=== PATIENT | female | born 1945 | race Caucasian/White ===

== ENCOUNTER 2016-08-10 12:20 | Emergency (ER) | payer MEDICARE, BC ==
--- NOTE | 2016-08-10 13:05 | ER Document Report ---
ED Syncope and Near Syncope - General Mode of Arrival: Ambulatory Information source: Patient - HPI Patient complains to provider of: Fainting Episode witnessed (by whom): Yes - family Symptoms prior to episode: Other - see notes above Context: Other - noel notes above Injury location: Back Current symptoms: Other - see notes above <MARIUSZ THOMAS - Last Filed: 08/10/16 17:47> <JERI BARRY - Last Filed: 08/10/16 19:55> - General Chief Complaint: Syncope Stated Complaint: POSSIBLE SYNCOPE/FALL Time Seen by Provider: 08/10/16 12:35 Notes: 71 year old female with history of TIAs presents to the ED via EMS after having a syncopal episode at home while trying to fix a window screen earlier this morning. Patient reports that she was fixing the screen and suddenly felt off balance. Patient tried to catch herself on the wall and was caught by her family member. The family member states that the patient's head slumped over and she was unconscious. Patient reports that "everything came rushing up" and that she had bilateral arm tingling. Patient reports that she hit the right side of her back as she fell and is complaining of right side back pain. Patient denies chest pain, shortness of breath, nausea, and abdominal pain. Patient states that she takes aspirin and took one prior to the fall. Patient reports to falling twice this week. (MARIUSZ THOMAS) - Related Data Allergies/Adverse Reactions: amlodipine [From Norvasc] Allergy (Verified 08/10/16 14:35) guaifenesin [From Entex LA] Allergy (Verified 08/10/16 14:35) phenylephrine [From Entex LA] Allergy (Verified 08/10/16 14:35) phenylpropanolamine [From Entex LA] Allergy (Verified 08/10/16 14:35) Sulfa (Sulfonamide Antibiotics) Allergy (Verified 08/10/16 14:35) hydrochlorothiazide [From Zestoretic] Adverse Reaction (Verified 08/10/16 14:35) lisinopril [From Zestoretic] Adverse Reaction (Verified 08/10/16 14:35) Past Medical History - General Information source: Patient - Social History Smoking Status: Unknown if Ever Smoked Family History: Reviewed & Not Pertinent Neurological Medical History: Reports: Other - TIAs <MARIUSZ THOMAS - Last Filed: 08/10/16 17:47> Review of Systems - Review of Systems Constitutional: No symptoms reported EENT: No symptoms reported Cardiovascular: See HPI, Lightheaded. denies: Chest pain Respiratory: No symptoms reported. denies: Short of breath Gastrointestinal: No symptoms reported. denies: Abdominal pain, Nausea Genitourinary: No symptoms reported Female Genitourinary: No symptoms reported Musculoskeletal: See HPI, Back pain - right side Skin: No symptoms reported Hematologic/Lymphatic: No symptoms reported Neurological/Psychological: See HPI, Lost consciousness, Tingling - bilateral arm -: Yes All other systems reviewed and negative <MARIUSZ THOMAS - Last Filed: 08/10/16 17:47> Physical Exam - General General appearance: Alert In distress: None - HEENT Head: Normocephalic, Atraumatic Eyes: Normal Extraocular movements intact: Yes Pupils: PERRL - Respiratory Respiratory status: No respiratory distress Chest status: Tender - see below Breath sounds: Normal Chest palpation: Tender - Tenderness to palpation of the right chest.. No: Normal - Cardiovascular Rhythm: Regular Heart sounds: Normal auscultation - Abdominal Inspection: Normal Distension: No distension Tenderness: Nontender - Back Back: Normal - Extremities General upper extremity: Normal inspection, Normal ROM General lower extremity: Tender - right buttock is tender to palpate, Normal ROM. No: Normal inspection - Neurological Neuro grossly intact: Yes Cognition: Normal Orientation: AAOx4 [place] Coma Scale Eye Opening: Spontaneous [place] Coma Scale Verbal: Oriented [place] Coma Scale Motor: Obeys Commands Kaylene Coma Scale Total: 15 Speech: Normal - Psychological Associated symptoms: Normal affect, Normal mood - Skin Skin Temperature: Warm Skin Moisture: Dry Skin Color: Normal <MARIUSZ THOMAS - Last Filed: 08/10/16 17:47> Course - Laboratory Result Diagrams: 08/10/16 13:03 08/10/16 13:03 <MARTHAMARIUSZ - Last Filed: 08/10/16 17:47> - Laboratory Result Diagrams: 08/10/16 13:03 08/10/16 13:03 - Diagnostic Test Radiology reviewed: Reports reviewed - EKG Interpretation by Me EKG shows normal: Sinus rhythm Rate: Normal Rhythm: NSR - Consults Dr. Alapati Time consulted: 19:30 Consulted provider: follow-up in office - Discuss history of valvular disease with [facility]. They will call her for a follow-up appointment. I've given the patient a number for follow-up as well. <JERI BARRY - Last Filed: 08/10/16 19:55> - Re-evaluation Re-evalutation: 08/10/16 19:44 Patient with no acute findings on EKG. Head CT within normal limits. Troponin negative 2. Patient is not orthostatic. She feels well and wants to go home. Patient will be discharged home and is to follow-up with [facility] regarding her history of aortic insufficiency. They will call her to schedule or she can call them in the morning. Patient feels well. Grateful for care. Stable for discharge. (JERI BARRY) - Vital Signs Vital signs: Temp Pulse Resp BP Pulse Ox 98.0 F 59 L 7 L 155/81 H 100 08/10/16 12:36 08/10/16 17:02 08/10/16 19:01 08/10/16 19:01 08/10/16 19:01 - Laboratory Laboratory results interpreted by me: 08/10/16 13:03 Sodium 134.8 L Chloride 96 L Carbon Dioxide 33 H Total Protein 6.2 L Discharge <MARIUSZ THOMAS - Last Filed: 08/10/16 17:47> <JERI BARRY - Last Filed: 08/10/16 19:55> - Discharge Clinical Impression: Near syncope, Heart valve disease Back contusion Qualifiers: Encounter type: initial encounter Laterality: right Qualified Code(s): S20.221A - Contusion of right back wall of thorax, initial encounter Fall Qualifiers: Encounter type: initial encounter Qualified Code(s): W19.XXXA - Unspecified fall, initial encounter Condition: Stable Disposition: HOME, SELF-CARE Instructions: Low Back Pain ([facility]), Contusion ([facility]), Syncopal Episode ([facility]), Near Syncopal Episode ([facility]) Additional Instructions: Please follow-up with the [facility] cardiology: [phone]. I spoke with Dr. Singh today. Please call the morning for a follow-up appointment regarding your valvular disease. Referrals: RAZIA CARRENO MD [Primary Care Provider] - Follow up as needed Scribe Attestation: 08/10/16 19:55 I personally performed the services described in the documentation, reviewed and edited the documentation which was dictated to the scribe in my presence, and it accurately records my words and actions. (JERI BARRY) Scribe Documentation - Scribe Written by Scribe:: Kevin Hartman, 08/10/2016 1417 acting as scribe for :: Torres <MARIUSZ THOMAS - Last Filed: 08/10/16 17:47>
[2016-08-10 13:21] LABS: ABSOLUTE BASOPHILS # (AUTO) 0.1 10^3/uL (0.0-0.2); ABSOLUTE EOSINOPHILS # (AUTO) 0.1 10^3/uL (0.0-0.6); ABSOLUTE MONOCYTES (AUTO) 0.6 10^3/uL (0.1-1.4); ABSOLUTE NEUT (AUTO) 3.7 10^3/uL (1.7-8.2); BASOPHILS % (AUTO) 1.1 % (0-2); EOSINOPHILS % (AUTO) 1.5 % (0-6); HEMATOCRIT 37.5 % (36.0-47.0); HEMOGLOBIN 12.8 g/dL (12.0-15.5); HGB HCT DIFFERENCE 0.9; LYMPHOCYTES % (AUTO) 18.8 % (13-45); MEAN CORPUSCULAR HEMOGLOBIN 30.7 pg (27.0-33.4); MEAN CORPUSCULAR HGB CONC 34.1 g/dL (32.0-36.0); MEAN CORPUSCULAR VOLUME 90 fl (80-97); MONOCYTES % (AUTO) 11.5 % (3-13); RED BLOOD COUNT 4.17 10^6/uL (3.72-5.28); RED CELL DISTRIBUTION WIDTH 13.8 % (11.5-14.0); SEGMENTED NEUTROPHILS % (AUTO) 67.1 % (42-78); WHITE BLOOD COUNT 5.6 10^3/uL (4.0-10.5)
[2016-08-10 13:34] LABS: ALANINE AMINOTRANSFERASE 41 U/L (9-52); ALBUMIN 3.8 g/dL (3.5-5.0); ALKALINE PHOSPHATASE 97 U/L (38-126); ANION GAP 6 (5-19); ASPARTATE AMINO TRANSFERASE 36 U/L (14-36); BILIRUBIN,DIRECT 0.1 mg/dL (0.0-0.4); BILIRUBIN,TOTAL 0.6 mg/dL (0.2-1.3); BLOOD UREA NITROGEN 8 mg/dL (7-20); CALCIUM 8.7 mg/dL (8.4-10.2); CARBON DIOXIDE 33 mmol/L (22-30); CHLORIDE 96 mmol/L (98-107); CREATINE KINASE 114 U/L (30-135); CREATININE RESULT 0.75 mg/dL (0.52-1.25); GLUCOSE 94 mg/dL (75-110); SODIUM 134.8 mmol/L (137-145); TOTAL PROTEIN 6.2 g/dL (6.3-8.2)
[2016-08-10] MEDS ORDERED: NORMAL SALINE 500 ML IV ONE (13:41)
[2016-08-10 13:45] LABS: CREATINE KINASE MB 0.42 ng/mL (<4.55)
[2016-08-10 13:46] LABS: TROPONIN I < 0.012 ng/mL
--- NOTE | 2016-08-10 15:34 | EKG REPORT ---
SEVERITY:- ABNORMAL ECG - SINUS RHYTHM LEFT ANTERIOR FASCICULAR BLOCK PROBABLE LEFT VENTRICULAR HYPERTROPHY : Confirmed by: Katnia Rosado MD 10-Aug-2016 15:33:54
[2016-08-10 16:18] LABS: APPEARANCE,URINE CLEAR; BILIRUBIN,URINE NEGATIVE (NEGATIVE); GLUCOSE, URINE NEGATIVE (NEGATIVE); KETONES,URINE NEGATIVE (NEGATIVE); LEUKOCYTE ESTERASE,URINE NEGATIVE (NEGATIVE); NITRITE,URINE NEGATIVE (NEGATIVE); PROTEIN,URINE NEGATIVE (NEGATIVE); URINE SPECIFIC GRAVITY 1.002; UROBILINOGEN,URINE NEGATIVE mg/dL (<2.0)
[2016-08-10 19:57] VITALS: BP 149/87
== END 2016-08-10 19:55 | disposition home or self-care (01) ==
LOC: ER 12:20
DX: S20.221A Contusion of right back wall of thorax, initial encounter (principal); W19.XXXA Unspecified fall, initial encounter; Y93.E9 Activity, other interior property and clothing maintenance; Y92.009 Unspecified place in unspecified non-institutional (private) residence as the place of occurrence of the external cause; I35.1 Nonrheumatic aortic (valve) insufficiency; R55 Syncope and collapse; M54.9 Dorsalgia, unspecified; R20.2 Paresthesia of skin; Z79.82 Long term (current) use of aspirin; Z88.8 Allergy status to other drugs, medicaments and biological substances; Z88.2 Allergy status to sulfonamides
CPT/HCPCS: 93005; 99285; 36415; 82553; 82550; 85025; 80053; 81001; 84484; 71010; 70450; 93010; J7040

== ENCOUNTER 2016-10-23 16:41 | Emergency (ER) | payer MEDICARE, BC ==
[2016-10-23 17:14] LABS: ABSOLUTE MONOCYTES (AUTO) 0.7 10^3/uL (0.1-1.4); ABSOLUTE NEUT (AUTO) 7.7 10^3/uL (1.7-8.2); BASOPHILS % (AUTO) 0.4 % (0-2); EOSINOPHILS % (AUTO) 0.4 % (0-6); HEMATOCRIT 40.8 % (36.0-47.0); HEMOGLOBIN 13.6 g/dL (12.0-15.5); LYMPHOCYTES % (AUTO) 10.5 % (13-45); MEAN CORPUSCULAR HEMOGLOBIN 30.4 pg (27.0-33.4); MEAN CORPUSCULAR HGB CONC 33.4 g/dL (32.0-36.0); MEAN CORPUSCULAR VOLUME 91 fl (80-97); MONOCYTES % (AUTO) 7.2 % (3-13); RED BLOOD COUNT 4.49 10^6/uL (3.72-5.28); RED CELL DISTRIBUTION WIDTH 13.7 % (11.5-14.0); SEGMENTED NEUTROPHILS % (AUTO) 81.5 % (42-78); WHITE BLOOD COUNT 9.4 10^3/uL (4.0-10.5)
--- NOTE | 2016-10-23 17:36 | ER Document Report ---
ED Psych Disorder / Suicide - General Chief Complaint: Suicidal Ideation Stated Complaint: SUICIDAL IDEATION Time Seen by Provider: 10/23/16 16:46 Notes: The patient is a 71-year-old female, past medical history depression, hypertension, CHF, presents with thoughts of harming herself for the past 2 days. Her called 911 because he was concerned. She does not have a plan to commit suicide and now realizes that it would harm her kids too much. The patient says she is under a lot of stress because her may have metastatic lung cancer and has a full workup scheduled tomorrow. She has taken her citalopram and Klonopin for decades without any medication adjustments and she is wondering if they need to be adjusted. She wants to move back home to [place]. She denies chest pain, shortness of breath, hallucinations, nausea, vomiting, headache, fevers, hallucinations or leg swelling. - Related Data Allergies/Adverse Reactions: amlodipine [From Norvasc] Allergy (Verified 08/10/16 14:35) guaifenesin [From Entex LA] Allergy (Verified 08/10/16 14:35) phenylephrine [From Entex LA] Allergy (Verified 08/10/16 14:35) phenylpropanolamine [From Entex LA] Allergy (Verified 08/10/16 14:35) Sulfa (Sulfonamide Antibiotics) Allergy (Verified 08/10/16 14:35) hydrochlorothiazide [From Zestoretic] Adverse Reaction (Verified 08/10/16 14:35) lisinopril [From Zestoretic] Adverse Reaction (Verified 08/10/16 14:35) Past Medical History - General Information source: Patient - Social History Smoking Status: Unknown if Ever Smoked Family History: Reviewed & Not Pertinent - Past Medical History Cardiac Medical History: Reports: Hx Hypertension Past Surgical History: Reports: Hx Abdominal Surgery - MESH, Hx Cholecystectomy , Hx Hysterectomy, Hx Orthopedic Surgery - R KNEE, Hx Thyroid Surgery, Hx Vascular Surgery Review of Systems - Review of Systems Notes: REVIEW OF SYSTEMS: CONSTITUTIONAL: -fevers, -chills EENT: -eye pain, -difficulty swallowing, -nasal congestion CARDIOVASCULAR:-chest pain, -syncope. RESPIRATORY: -cough, -SOB GASTROINTESTINAL: -abdominal pain, - nausea, -vomiting, -diarrhea GENITOURINARY: -dysuria, -hematuria MUSCULOSKELETAL: -back pain, -neck pain SKIN: -rash or skin lesions. HEMATOLOGIC: -easy bruising or bleeding. LYMPHATIC: -swollen, enlarged glands. NEUROLOGICAL: -altered mental status or loss of consciousness, -headache, - neurologic symptoms PSYCHIATRIC: -anxiety, +depression, +SI ALL OTHER SYSTEMS REVIEWED AND NEGATIVE. Physical Exam - Notes Notes: PHYSICAL EXAMINATION: GENERAL: Well-appearing, well-nourished and in no acute distress. HEAD: Atraumatic, normocephalic. EYES: Pupils equal round and reactive to light, extraocular movements intact, sclera anicteric, conjunctiva are normal. ENT: nares patent, oropharynx clear without exudates. Moist mucous membranes. NECK: Normal range of motion, supple without lymphadenopathy LUNGS: Breath sounds clear to auscultation bilaterally and equal. No wheezes rales or rhonchi. HEART: Regular rate and rhythm without murmurs ABDOMEN: Soft, nontender, normoactive bowel sounds. No guarding, no rebound. No masses appreciated. EXTREMITIES: Normal range of motion, no pitting or edema. No cyanosis. NEUROLOGICAL: Cranial nerves grossly intact. Normal speech, normal gait. Normal sensory and motor exams. PSYCH: Depressed mood, tearful. Cooperative. SKIN: Warm, Dry, normal turgor, no rashes or lesions noted. Course - Re-evaluation Re-evalutation: Patient expressed suicidal thoughts to her , but patient says that she has no plan to harm herself and that she is too worried about her kids to harm herself. Patient says that she will stay overnight to be evaluated by mental health in the morning. Medically cleared for mental health evaluation. - Laboratory Result Diagrams: 10/23/16 16:53 10/23/16 16:53 Laboratory results interpreted by me: 10/23/16 16:53 Seg Neutrophils % 81.5 H Lymphocytes % 10.5 L Discharge - Discharge Clinical Impression: Suicidal ideation Condition: Stable Disposition: PSYCH HOSP/UNIT
[2016-10-23 17:38] LABS: ALANINE AMINOTRANSFERASE 61 U/L (9-52); ALBUMIN 4.2 g/dL (3.5-5.0); ALKALINE PHOSPHATASE 135 U/L (38-126); ANION GAP 10 (5-19); ASPARTATE AMINO TRANSFERASE 58 U/L (14-36); BILIRUBIN,DIRECT 0.3 mg/dL (0.0-0.4); BILIRUBIN,TOTAL 0.8 mg/dL (0.2-1.3); BLOOD UREA NITROGEN 7 mg/dL (7-20); CARBON DIOXIDE 28 mmol/L (22-30); CHLORIDE 93 mmol/L (98-107); CREATININE RESULT 0.74 mg/dL (0.52-1.25); GLUCOSE 116 mg/dL (75-110); POTASSIUM 3.9 mmol/L (3.6-5.0); SODIUM 130.9 mmol/L (137-145); TOTAL PROTEIN 7.2 g/dL (6.3-8.2)
[2016-10-23 17:40] LABS: ALCOHOL < 10 mg/dL (NONE DETECTED)
[2016-10-23] MEDS ORDERED: CLONAZEPAM 1 MG TABLET PO PRN (17:40)
[2016-10-23 18:07] LABS: APPEARANCE,URINE CLEAR; BILIRUBIN,URINE NEGATIVE (NEGATIVE); GLUCOSE, URINE NEGATIVE (NEGATIVE); KETONES,URINE TRACE mg/dL (NEGATIVE); LEUKOCYTE ESTERASE,URINE NEGATIVE (NEGATIVE); NITRITE,URINE NEGATIVE (NEGATIVE); PROTEIN,URINE NEGATIVE (NEGATIVE); URINE SPECIFIC GRAVITY 1.005; UROBILINOGEN,URINE NEGATIVE mg/dL (<2.0)
[2016-10-23 18:24] LABS: URINE BARBITURATES SCREEN NEGATIVE; URINE METHADONE SCREEN NEGATIVE; URINE OPIATES LOW NEGATIVE; URINE PHENCYCLIDINE SCREEN NEGATIVE
[2016-10-23] MEDS ORDERED: ACETAMINOPHEN 325 MG TABLET PO PRN (21:55)
[2016-10-23] MEDS ORDERED: ZOLPIDEM TARTRATE 5 MG TABLET PO SCH (22:15)
[2016-10-23] MEDS ORDERED: ZOLPIDEM TARTRATE 5 MG TABLET PO ONE (22:45)
[2016-10-24] MEDS ORDERED: CITALOPRAM HYDROBROMIDE 20 MG TABLET PO SCH (12:00)
--- NOTE | 2016-10-24 12:44 | EKG REPORT ---
SEVERITY:- ABNORMAL ECG - SINUS RHYTHM LEFT ANTERIOR FASCICULAR BLOCK LEFT VENTRICULAR HYPERTROPHY : Confirmed by: Katina Rosado MD 24-Oct-2016 12:42:37
--- NOTE | 2016-10-24 13:11 | ER Document Report ---
Doctor's Note Notes: 10/24/16 13:11 Patient was seen by the psychiatry service, decision was made to place the patient on IVC hold and start treatment.
[2016-10-24] MEDS ORDERED: LOPERAMIDE HCL 2 MG CAPSULE PO ONE (13:43)
[2016-10-24] MEDS ORDERED: CLONAZEPAM 1 MG TABLET PO PRN (13:52)
[2016-10-24] MEDS ORDERED: ACETAMINOPHEN 325 MG TABLET PO PRN (13:52)
[2016-10-24] MEDS ORDERED: CITALOPRAM HYDROBROMIDE 20 MG TABLET PO ONE (14:00)
[2016-10-24] MEDS ORDERED: ZOLPIDEM TARTRATE 5 MG TABLET PO SCH (22:00)
[2016-10-24] MEDS ORDERED: CLONIDINE HCL 0.1 MG TABLET PO SCH (22:00)
[2016-10-24] MEDS ORDERED: BUSPIRONE HCL 10 MG TABLET PO SCH (22:00)
--- NOTE | 2016-10-25 09:35 | ER Document Report ---
Doctor's Note Notes: 10/25/16 09:35 This is a 71-year-old female presented to the ER 10/23/2016 with patient and significant suicidal ideations after a suicide gesture. Was placed under involuntary commitment, was medically cleared and is currently being observed in the ER with psychiatric evaluation. Patient's vital signs have been stable. On physical exam, the patient is alert and oriented 3 and states she feels much better. She denies any suicidal ideations. She is accompanied by her who states that the patient looks much better. They both would prefer outpatient counseling. 10/25/16 10:40 10/25/16 12:09 This case with the psychiatric counselor. Plan will be for discharge today with follow-up in [place]. Discussed this with the patient and her and they plan on stopping by right after discharge from the ER.
[2016-10-25] MEDS ORDERED: CITALOPRAM HYDROBROMIDE 20 MG TABLET PO SCH (10:00)
[2016-10-25 12:20] VITALS: BP 134/83
== END 2016-10-25 12:18 ==
LOC: ER 16:41
DX: R45.851 Suicidal ideations (principal); F39 Unspecified mood [affective] disorder; Z65.8 Other specified problems related to psychosocial circumstances; F32.9 Major depressive disorder, single episode, unspecified
CPT/HCPCS: 93005; 36415; 80307 ×4; 85025; 80053; 81001; 93010; A9270 ×3; 99285